=== PATIENT | female | born 1955 | race Caucasian/White ===

== ENCOUNTER 2017-03-13 07:26 | Day surgery (SDC) | payer MEDICARE, BC ==
[~2017-03-13 07:26] MED LIST: Metoclopramide 10 MG/2 ML SDV IV PRN; Sodium Chloride 0.9% 10 ML Syringe FLUSH PRN
[2017-03-13] MEDS ORDERED: Propofol 1,000 MG/100 ML SDV ONE (09:20)
[2017-03-13 12:29] VITALS: BP 122/56
--- NOTE | 2017-03-13 17:47 | OR ---
DATE OF OPERATION: 03/13/2017 PREOPERATIVE DIAGNOSIS: Surveillance colonoscopy. POSTOPERATIVE DIAGNOSES: 1. Ascending colon polyp. 2. Otherwise, normal colonoscopy. OPERATION: Surveillance colonoscopy with cold snare polypectomy. COMPLICATIONS: None. DRAINS: None. SPECIMENS: Ascending colon polyp. ESTIMATED BLOOD LOSS: Minimal. ANESTHESIA: General propofol anesthesia. INDICATION: Mrs. Vidales is a 61-year-old female with a prior history of colonic polyps. She recently underwent surgery for a kidney tumor. She was also found on CT scan to have some areas of thickening in the colon, which were also requested to be investigated. The above-mentioned procedure was explained. The risks, benefits, and complications were explained. The patient understood and agreed and was brought to the operating room. DESCRIPTION OF PROCEDURE: The patient was brought to the operating room, placed in the left lateral decubitus position on the operating room table. Satisfactory general propofol anesthesia was administered. We began by performing a rectal examination which was within normal limits. Next, I placed the endoscope by finger introduction into the rectum and subsequently advanced to the level of the cecum. The cecum was identified by the appendiceal orifice, the ileocecal valve, and the cecal strap. Next, careful evaluation of mucosa was performed on withdrawal and intubation of the terminal ilium was performed. This was normal. The cecum appeared normal. Next, careful evaluation revealed a pedunculated polyp in the ascending colon. This was approximately 0.5 cm in size. This was then removed with a cold snare polypectomy. The polyp was completely removed and retrieved. After this was done, we inspected the base of the polyp and this appeared satisfactory as oozing had stopped. Next, careful evaluation of the remainder of the colon was carried out and this revealed no diverticula, no other polyps, no neoplastic growths or telangiectasias. Next, I performed a retroflexion maneuver in the rectum and this was within normal limits. Next, we decompressed the colon and subsequently removed the endoscope. The patient was then awoken in the OR and taken to the PACU for recovery. There were no complications. Instrument count was correct. The patient tolerated the procedure well. DONN/EMMA /[id number]
== END 2017-03-13 11:55 | disposition home or self-care (01) ==
LOC: LB.SDS 07:26
PROVIDERS: ATTEND Surgery
DX: Z12.11 Encounter for screening for malignant neoplasm of colon (principal); D12.2 Benign neoplasm of ascending colon; Z88.8 Allergy status to other drugs, medicaments and biological substances; Z79.84 Long term (current) use of oral hypoglycemic drugs; Z79.899 Other long term (current) drug therapy
CPT/HCPCS: 45385; 82962; 88305; J7040; J3490

== ENCOUNTER 2020-07-16 16:36 | Emergency (ER) | payer MEDICARE ==
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
[2020-07-16 18:15] VITALS: PULSE 68
== END 2020-07-16 18:10 | disposition home or self-care (01) ==
LOC: LB.ED 16:36
DX: F33.9 Major depressive disorder, recurrent, unspecified (principal); E11.42 Type 2 diabetes mellitus with diabetic polyneuropathy; K21.9 Gastro-esophageal reflux disease without esophagitis; Z79.84 Long term (current) use of oral hypoglycemic drugs; Z79.899 Other long term (current) drug therapy; Z20.822 Contact with and (suspected) exposure to COVID-19; Z88.8 Allergy status to other drugs, medicaments and biological substances
CPT/HCPCS: 99284; U0002

== ENCOUNTER 2020-07-19 18:05 | Emergency (ER) | payer MEDICARE ==
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
[2020-07-19 18:25] VITALS: BP 128/70; PULSE 117
[2020-07-19] MEDS ORDERED: Sulfamethoxazole/Trimethoprim 800-160 MG Tab PO ONE (20:02)
[2020-07-19] MEDS ORDERED: Sulfamethoxazole/Trimethoprim 800-160 MG Tab ONE (22:34)
== END 2020-07-20 00:30 ==
LOC: LB.ED 18:05
DX: F33.2 Major depressive disorder, recurrent severe without psychotic features (principal); K21.9 Gastro-esophageal reflux disease without esophagitis; E11.42 Type 2 diabetes mellitus with diabetic polyneuropathy; Z20.822 Contact with and (suspected) exposure to COVID-19; Z88.8 Allergy status to other drugs, medicaments and biological substances; Z79.899 Other long term (current) drug therapy
CPT/HCPCS: 36415; 80053; 80307; 81001; 84443; 85025; 99285; A9270-GY; U0002

== ENCOUNTER 2020-11-10 21:51 | Emergency (ER) | payer MEDICARE ==
--- NOTE | 2020-11-10 23:48 | EDM.PDOC ---
ED HPI GENERAL MEDICAL PROBLEM - General Chief Complaint: Wound Recheck Stated Complaint: WOUND INFECTION Time Seen by Provider: 11/10/20 23:35 Source of Information: Reports: Patient History Limitations: Reports: No Limitations - History of Present Illness INITIAL COMMENTS - FREE TEXT/NARRATIVE: 64 year old female with PMH of depression, GERD, presents to ED with a possible infection in a biopsy on her back. She had several areas on her neck and face frozen which are healing well, but there are 2 areas on her back that she had biopsied that have become more painful with some drainage. She has had a low grade fever today and is concerned about an infection. Location: Reports: Back Quality: Reports: Burning Severity: Mild Improves with: Reports: None Worsens with: Reports: None Associated Symptoms: Reports: Fever/Chills - Related Data Allergies Allergy/AdvReac Type Severity Reaction Status Date / Time diphenhydramine HCl Allergy Tachycardia Verified 07/19/20 16:50 [From Benadryl] epinephrine Allergy Tachycardia Verified 07/19/20 16:50 prochlorperazine maleate Allergy Change Verified 07/19/20 16:50 [From Compazine] Mental Status Sulfa (Sulfonamide Allergy Blisters Verified 11/10/20 23:31 Antibiotics) Home Meds: Home Meds FLUoxetine HCl [Fluoxetine HCl] 60 mg PO DAILY 03/09/17 [History] Pantoprazole Sodium 40 mg PO ACBREAKFAST 03/09/17 [History] Escitalopram Oxalate 10 mg PO DAILY 02/06/20 [History] cephALEXin [Keflex] 500 mg PO Q6H 2 Days #8 cap 11/10/20 [Rx] Past Medical History HEENT History: Reports: Cataract Respiratory History: Reports: Bronchitis, Recurrent Gastrointestinal History: Reports: Cholelithiasis, Diverticulosis, GERD, Inflammatory Bowel Disease, Irritable Bowel Syndrome 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: Musculoskeletal History: Reports: Arthritis, Other (See Below) Other Musculoskeletal History: spinal stenosis; degenerative disc disease Neurological History: Reports: Neuropathy, Peripheral Psychiatric History: Reports: Anxiety, Depression, Other (See Below) Endocrine/Metabolic History: Reports: Diabetes, Type II Oncologic (Cancer) History: Reports: Renal - Infectious Disease History Infectious Disease History: Reports: Other (See Below) Other Infectious Disease History: Covid 19 - Past Surgical History HEENT Surgical History: Reports: Tonsillectomy GI Surgical History: Reports: Cholecystectomy, Colonoscopy, Hernia, Abdominal Female Surgical History: Reports: Hysterectomy, Other (See Below) Other Female Surgeries/Procedures: partial removal of right kidney in August 2016 Musculoskeletal Surgical History: Reports: Knee Replacement Social & Family History - Family History Family Medical History: No Pertinent Family History - Caffeine Use Caffeine Use: Reports: Soda ED ROS GENERAL - Review of Systems Review Of Systems: See Below Constitutional: Reports: Fever HEENT: Reports: No Symptoms Respiratory: Reports: No Symptoms Cardiovascular: Reports: No Symptoms Endocrine: Reports: No Symptoms GI/Abdominal: Reports: No Symptoms : Reports: No Symptoms Musculoskeletal: Reports: No Symptoms Skin: Reports: Wound Neurological: Reports: No Symptoms Psychiatric: Reports: No Symptoms Hematologic/Lymphatic: Reports: No Symptoms ED EXAM, SKIN/RASH Exam: See Below Exam Limited By: No Limitations General Appearance: Alert, No Apparent Distress Ears: Normal External Exam, Hearing Grossly Normal Nose: Normal Inspection, No Blood Throat/Mouth: Normal Inspection, Normal Lips, Normal Teeth, Normal Gums, Normal Oropharynx, Normal Voice Head: Atraumatic Neck: Normal Inspection, Non-Tender, Full Range of Motion Respiratory/Chest: No Respiratory Distress, Lungs Clear, Normal Breath Sounds, No Accessory Muscle Use Cardiovascular: Normal Peripheral Pulses, Regular Rate, Rhythm, No Edema, No Murmur GI/Abdominal: Normal Bowel Sounds, Soft, Non-Tender Back Exam: Normal Inspection, Other (1cm x 1 cm open wound with red surrounding, no drainage at this time) Extremities: Normal Inspection, Normal Range of Motion, Non-Tender Psychiatric: Normal Affect, Normal Mood Skin: Warm, Dry, Normal Color, No Rash, Increased Warmth, Wound/Incision Location, Skin: Back Associated features: Warmth, Tenderness, Inflammation Lymphatic: No Adenopathy Departure - Departure Time of Disposition: 23:53 Disposition: Home, Self-Care 01 Condition: Good Clinical Impression: Infection following a procedure, other surgical site, initial encounter - Discharge Information *PRESCRIPTION DRUG MONITORING PROGRAM REVIEWED*: Not Applicable *COPY OF PRESCRIPTION DRUG MONITORING REPORT IN PATIENT INDERJIT: Not Applicable Prescriptions: cephALEXin [Keflex] 500 mg PO Q6H 2 Days #8 cap Instructions: Wound Infection, [id number] Additional Instructions: Start taking the antibiotics. Continue monitoring the area for signs of increased infection. Return to ED for any increased or new concerning symptoms. Tylenol as needed for the pain.
[2020-11-10] MEDS ORDERED: Cephalexin 500 MG Cap ONE (23:50)
[2020-11-11 05:38] VITALS: BP 126/61; PULSE 72
== END 2020-11-11 00:08 | disposition home or self-care (01) ==
LOC: LB.ED 21:51
DX: T81.40XA Infection following a procedure, unspecified, initial encounter (principal); K21.9 Gastro-esophageal reflux disease without esophagitis; E11.40 Type 2 diabetes mellitus with diabetic neuropathy, unspecified; Z88.6 Allergy status to analgesic agent; Z88.2 Allergy status to sulfonamides; Z88.8 Allergy status to other drugs, medicaments and biological substances
CPT/HCPCS: 99283; A9270-GY